=== PATIENT | male | born 1975 ===

== ENCOUNTER 2020-12-06 19:07 | Observation (INO) | payer BC ==
--- NOTE | 2020-12-06 19:19 | EDM.PDOC ---
ED HPI GENERAL MEDICAL PROBLEM - General Chief Complaint: ENT Problem Stated Complaint: SWOLLEN MOUTH AND HANDS Time Seen by Provider: 12/06/20 19:11 Source of Information: Reports: Patient History Limitations: Reports: No Limitations - History of Present Illness INITIAL COMMENTS - FREE TEXT/NARRATIVE: 45-year-old male presents for swelling to lips and itchy hands. Patient notes that he does take lisinopril which he has been on for several years. He also notes that he just recently finished a course of antibiotics for a skin infection. He was feeling fine last night, woke up this morning and noted swelling primarily in his upper lip and itchiness, blotchiness to his bilateral hands. Throughout the day the swelling in the upper lip has dissipated but he now notes swelling in bilateral lower lip left greater than right. He denies any drooling, difficulty tolerating secretions, difficulty swallowing, shortness of breath, wheezing, stridor, shortness of breath. - Related Data Allergies Allergy/AdvReac Type Severity Reaction Status Date / Time No Known Allergies Allergy Verified 12/06/20 19:19 Home Meds: Home Meds Aspirin [Halfprin] 81 mg PO BRK 06/04/16 [History] Furosemide [Lasix] 40 mg PO DAILY #5 tablet 06/04/16 [Rx] Levothyroxine 25 mcg PO ACBREAKFAST 06/04/16 [History] Levothyroxine [Synthroid] 50 mcg PO ACBREAKFAST #30 tablet 06/04/16 [Rx] Lisinopril 20 mg PO DAILY #30 tablet 06/04/16 [Rx] Lisinopril [Prinivil] 20 mg PO DAILY 06/04/16 [History] amLODIPine [Norvasc] 5 mg PO DAILY 06/04/16 [History] amLODIPine [Norvasc] 5 mg PO DAILY #30 tablet 06/04/16 [Rx] Past Medical History Cardiovascular History: Reports: Hypertension Endocrine/Metabolic History: Reports: Hypothyroidism ED ROS GENERAL - Review of Systems Review Of Systems: Comprehensive ROS is negative, except as noted in HPI. ED EXAM, GENERAL - Physical Exam Exam: See Below Exam Limited By: No Limitations General Appearance: Alert, WD/WN, No Apparent Distress Throat/Mouth: Normal Oropharynx, Normal Voice, No Airway Compromise, Other (no uveular edema, no oropharyneal swelling, patent airway, swelling to b/l lower lips L>R) Head: Atraumatic, Normocephalic Neck: Normal Inspection, Supple, Other (no stridor) Respiratory/Chest: No Respiratory Distress, Lungs Clear, Normal Breath Sounds, No Accessory Muscle Use Cardiovascular: Normal Peripheral Pulses, Regular Rate, Rhythm Extremities: Normal Inspection Neurological: Alert Psychiatric: Normal Affect, Normal Mood Skin Exam: Warm, Dry, Intact, Normal Color Course - Vital Signs Last Recorded V/S: Last Vital Signs Temp 98.5 F 12/06/20 19:19 Pulse 86 12/06/20 19:19 Resp 17 12/06/20 19:19 BP 137/80 12/06/20 19:19 Pulse Ox 99 12/06/20 19:19 - Orders/Labs/Meds Orders: Active Orders 24 hr Category Date Time Status CORONAVIRUS COVID-19 SHANI [MOLEC] Stat Lab 12/06/20 20:59 Ordered Sodium Chloride 0.9% [Saline Flush] Med 12/06/20 19:32 Active 10 ml FLUSH ASDIRECTED PRN Sodium Chloride 0.9% [Saline Flush] Med 12/06/20 19:32 Active 2.5 ml FLUSH ASDIRECTED PRN Saline Lock Insert [OM.PC] Stat Oth 12/06/20 19:32 Ordered Medication Orders Sodium Chloride (Sodium Chloride 0.9% 10 Ml Syringe) 10 ml FLUSH ASDIRECTED PRN PRN Reason: Keep Vein Open Last Admin: 12/06/20 19:56 Dose: 10 ml Documented by: ESA Sodium Chloride (Sodium Chloride 0.9% 2.5 Ml Syringe) 2.5 ml FLUSH ASDIRECTED PRN PRN Reason: Keep Vein Open Last Admin: 12/06/20 19:56 Dose: 2.5 ml Documented by: ESA Labs: Laboratory Tests 12/06/20 12/06/20 Range/Units 19:45 19:45 WBC 7.61 (4.0-11.0) K/uL RBC 5.26 (4.50-5.90) M/uL Hgb 15.0 (13.0-17.0) g/dL Hct 43.4 (38.0-50.0) % MCV 82.5 (80.0-98.0) fL MCH 28.5 (27.0-32.0) pg MCHC 34.6 (31.0-37.0) g/dL RDW Std Deviation 42.2 (28.0-62.0) fl RDW Coeff of Cassandra 14 (11.0-15.0) % Plt Count 266 (150-400) K/uL MPV 9.90 (7.40-12.00) fL Neut % (Auto) 73.5 (48.0-80.0) % Lymph % (Auto) 19.6 (16.0-40.0) % [place] % (Auto) 5.7 (0.0-15.0) % Eos % (Auto) 1.1 (0.0-7.0) % Baso % (Auto) 0.1 (0.0-1.5) % Neut # (Auto) 5.6 (1.4-5.7) K/uL Lymph # (Auto) 1.5 (0.6-2.4) K/uL [place] # (Auto) 0.4 (0.0-0.8) K/uL Eos # (Auto) 0.1 (0.0-0.7) K/uL Baso # (Auto) 0.0 (0.0-0.1) K/uL Nucleated RBC % 0.0 /100WBC Nucleated RBCs # 0 K/uL Sodium 139 (136-148) mmol/L Potassium 3.8 (3.5-5.1) mmol/L Chloride 102 (98-107) mmol/L Carbon Dioxide 27.7 (21.0-32.0) mmol/L BUN 10 (7.0-18.0) mg/dL Creatinine 1.3 (0.8-1.3) mg/dL Est Cr Clr Drug Dosing 72.53 mL/min Estimated GFR (MDRD) 59.2 ml/min Glucose 116 H (74-106) mg/dL Calcium 9.0 (8.5-10.1) mg/dL Total Bilirubin 0.3 (0.2-1.0) mg/dL AST 20 (15-37) IU/L ALT 41 (14-63) IU/L Alkaline Phosphatase 69 (46-116) U/L Total Protein 7.8 (6.4-8.2) g/dL Albumin 3.5 (3.4-5.0) g/dL Globulin 4.3 H (2.6-4.0) g/dL Albumin/Globulin Ratio 0.8 L (0.9-1.6) Meds: Medications Generic Name Dose Route Start Last Admin Trade Name Freq PRN Reason Stop Dose Admin Sodium Chloride 10 ml 12/06/20 19:32 12/06/20 19:56 Sodium Chloride 0.9% 10 Ml Syringe FLUSH 10 ml ASDIRECTED PRN Administration Keep Vein Open Sodium Chloride 2.5 ml 12/06/20 19:32 12/06/20 19:56 Sodium Chloride 0.9% 2.5 Ml Syringe FLUSH 2.5 ml ASDIRECTED PRN Administration Keep Vein Open Discontinued Medications Generic Name Dose Route Start Last Admin Trade Name Freq PRN Reason Stop Dose Admin Diphenhydramine HCl 50 mg 12/06/20 19:33 12/06/20 19:55 Diphenhydramine 50 Mg/Ml Sdv IVPUSH 12/06/20 19:34 Not Given ONETIME ONE Diphenhydramine HCl 25 mg 12/06/20 19:49 12/06/20 19:51 Diphenhydramine 50 Mg/Ml Sdv IVPUSH 12/06/20 19:50 25 mg ONETIME ONE Administration Tranexamic Acid 1,000 mg/ 110 mls @ 10 mls/min 12/06/20 19:33 12/06/20 19:48 Sodium Chloride IV 12/06/20 19:43 10 mls/min ONETIME ONE Administration Methylprednisolone Sodium Succinate 125 mg 12/06/20 19:33 12/06/20 19:45 Methylprednisolone Sodium Succinate 125 Mg/2 Ml Sdv IVPUSH 12/06/20 19:34 125 mg ONETIME ONE Administration Tranexamic Acid Confirm 12/06/20 19:44 12/06/20 19:48 Tranexamic Acid 1,000 Mg/10 Ml Amp Administered 12/06/20 19:45 Not Given Dose 1,000 mg .ROUTE .[facility] ONE - Re-Assessments/Exams Free Text/Narrative Re-Assessment/Exam: 12/06/20 19:36 We will treat for possible JOHN inhibitor induced angioedema. Will give Benadryl, methylprednisolone, TXA. Will get basic labs. Patient symptoms have been going on since this morning and he does not appear to have any airway involvement. 12/06/20 21:04 Patient symptoms not improving. Not getting worse. Discussed disposition decision with patient and through shared decision making we will keep patient for observation considering he lives far from the hospital. I discussed this case with Dr. Steiner the inpatient hospitalist who agrees to admit under his service. Will admit patient to ICU observation. Departure - Departure Time of Disposition: 21:08 Disposition: Admitted As Inpatient 64 Condition: Fair Clinical Impression: Angioedema Qualifiers: Encounter type: initial encounter Qualified Code(s): T78.3XXA - Angioneurotic edema, initial encounter - Discharge Information Referrals: PCP,None [Primary Care Provider] - Forms: ED Department Discharge Critical Care Note - Critical Care Note Total Time (mins): 35 Sepsis Event Note (ED) - Focused Exam Vital Signs: Vital Signs Temp Pulse Resp BP Pulse Ox 12/06/20 19:19 98.5 F 86 17 137/80 99 - My Orders Last 24 Hours: My Active Orders 12/06/20 19:32 Sodium Chloride 0.9% [Saline Flush] 10 ml FLUSH ASDIRECTED PRN Sodium Chloride 0.9% [Saline Flush] 2.5 ml FLUSH ASDIRECTED PRN Saline Lock Insert [OM.PC] Stat 12/06/20 20:59 CORONAVIRUS COVID-19 SHANI [MOLEC] Stat - Assessment/Plan Last 24 Hours: My Active Orders 12/06/20 19:32 Sodium Chloride 0.9% [Saline Flush] 10 ml FLUSH ASDIRECTED PRN Sodium Chloride 0.9% [Saline Flush] 2.5 ml FLUSH ASDIRECTED PRN Saline Lock Insert [OM.PC] Stat 12/06/20 20:59 CORONAVIRUS COVID-19 SHANI [MOLEC] Stat
[2020-12-06] MEDS ORDERED: Sodium Chloride 0.9% 2.5 ML Syringe FLUSH PRN (19:32)
[2020-12-06] MEDS ORDERED: Sodium Chloride 0.9% 10 ML Syringe FLUSH PRN (19:32)
[2020-12-06] MEDS ORDERED: methylPREDNISolone Sodium Succinate 125 MG/2 ML SDV IVPUSH ONE (19:33)
[2020-12-06] MEDS ORDERED: Tranexamic Acid 1,000 MG in Sodium Chloride 0.9% 100 ML IV ONE (19:33)
[2020-12-06] MEDS ORDERED: diphenhydrAMINE 50 MG/ML SDV IVPUSH ONE ×2 (19:33→19:49)
[2020-12-06 20:11] LABS: CARBON DIOXIDE,CO2 27.7 mmol/L (21.0-32.0); POTASSIUM,K 3.8 mmol/L (3.5-5.1)
[2020-12-06 22:52] VITALS: PULSE 63
--- NOTE | 2020-12-06 23:55 | PCM.HP.2 ---
H&P History of Present Illness - General Date of Service: 12/07/20 Admit Problem/Dx: Admission Diagnosis/Problem Admission Diagnosis/Problem Angioedema - History of Present Illness Initial Comments - Free Text/Narative: 45 yo male with pmh of HTN who presented to the ED with one day history of lip and hand swelling, he denies any tongue swelling, rash, shortness of breath, or difficulty swallowing. Patient has been taking lisinopril and just finished an antibiotic course for skin infection over recent skin cancer lesion excesion on the back of his neck. - Related Data Allergies/Adverse Reactions: Allergies Allergy/AdvReac Type Severity Reaction Status Date / Time No Known Allergies Allergy Verified 12/06/20 19:19 Home Medications: Home Meds Aspirin [Halfprin] 81 mg PO BEDTIME 06/04/16 [History] Levothyroxine [Synthroid] 50 mcg PO ACBREAKFAST #30 tablet 06/04/16 [Rx] amLODIPine [Norvasc] 5 mg PO DAILY #30 tablet 06/04/16 [Rx] Chlorthalidone 1 tab PO DAILY 12/06/20 [History] Lisinopril 40 mg PO DAILY 12/06/20 [History] Phentermine HCl 37.5 mg PO DAILY 12/06/20 [History] Past Medical History HEENT History: Reports: None Cardiovascular History: Reports: Hypertension Respiratory History: Reports: Sleep Apnea, Other (See Below) Other Respiratory History: using CPAP at night. COVID last 04/2020 Gastrointestinal History: Reports: None Genitourinary History: Reports: None Musculoskeletal History: Reports: None, Other (See Below) Other Musculoskeletal History: Congenitive disc at L5, S1 Neurological History: Reports: None Psychiatric History: Reports: None Endocrine/Metabolic History: Reports: Hypothyroidism Hematologic History: Reports: None Oncologic (Cancer) History: Reports: Basal Cell Carcinoma Dermatologic History: Reports: None - Infectious Disease History Infectious Disease History: Reports: Chicken Pox - Past Surgical History Head Surgeries/Procedures: Reports: None Social & Family History - Family History Family Medical History: No Pertinent Family History - Tobacco Use Tobacco Use Status *Q: Never Tobacco User Second Hand Smoke Exposure: No - Caffeine Use Caffeine Use: Reports: Coffee, Tea - Recreational Drug Use Recreational Drug Use: No H&P Review of Systems - Review of Systems: Review Of Systems: Comprehensive ROS is negative, except as noted in HPI. Exam - Exam Exam: See Below - Vital Signs Vital Signs: Last Vital Signs Temp 36.2 C 12/06/20 22:50 Pulse 63 12/06/20 22:21 Resp 16 12/06/20 22:50 BP 128/69 12/06/20 22:50 Pulse Ox 93 L 12/06/20 22:50 Weight: 146.102 kg - Exam General: Alert, Oriented HEENT: Mucosa Moist & [place], Other (lower lip appears mccann compaired to upper lip, no edema of tounge or oropharynx) Lungs: Clear to Auscultation, Normal Respiratory Effort Cardiovascular: Regular Rate, Regular Rhythm GI/Abdominal Exam: Normal Bowel Sounds, Soft, Non-Tender Extremities: Non-Tender, No Pedal Edema, Other (mild edema of hands bilaterally) Skin: Warm, Dry, Intact. No: Rash - Patient Data Lab Results Last 24 hrs: Laboratory Results - last 24 hr 12/06/20 12/06/20 12/06/20 Range/Units 19:45 19:45 21:22 WBC 7.61 (4.0-11.0) K/uL RBC 5.26 (4.50-5.90) M/uL Hgb 15.0 (13.0-17.0) g/dL Hct 43.4 (38.0-50.0) % MCV 82.5 (80.0-98.0) fL MCH 28.5 (27.0-32.0) pg MCHC 34.6 (31.0-37.0) g/dL RDW Std Deviation 42.2 (28.0-62.0) fl RDW Coeff of Cassandra 14 (11.0-15.0) % Plt Count 266 (150-400) K/uL MPV 9.90 (7.40-12.00) fL Neut % (Auto) 73.5 (48.0-80.0) % Lymph % (Auto) 19.6 (16.0-40.0) % [place] % (Auto) 5.7 (0.0-15.0) % Eos % (Auto) 1.1 (0.0-7.0) % Baso % (Auto) 0.1 (0.0-1.5) % Neut # (Auto) 5.6 (1.4-5.7) K/uL Lymph # (Auto) 1.5 (0.6-2.4) K/uL [place] # (Auto) 0.4 (0.0-0.8) K/uL Eos # (Auto) 0.1 (0.0-0.7) K/uL Baso # (Auto) 0.0 (0.0-0.1) K/uL Nucleated RBC % 0.0 /100WBC Nucleated RBCs # 0 K/uL Sodium 139 (136-148) mmol/L Potassium 3.8 (3.5-5.1) mmol/L Chloride 102 (98-107) mmol/L Carbon Dioxide 27.7 (21.0-32.0) mmol/L BUN 10 (7.0-18.0) mg/dL Creatinine 1.3 (0.8-1.3) mg/dL Est Cr Clr Drug Dosing 72.53 mL/min Estimated GFR (MDRD) 59.2 ml/min Glucose 116 H (74-106) mg/dL Calcium 9.0 (8.5-10.1) mg/dL Total Bilirubin 0.3 (0.2-1.0) mg/dL AST 20 (15-37) IU/L ALT 41 (14-63) IU/L Alkaline Phosphatase 69 (46-116) U/L Total Protein 7.8 (6.4-8.2) g/dL Albumin 3.5 (3.4-5.0) g/dL Globulin 4.3 H (2.6-4.0) g/dL Albumin/Globulin Ratio 0.8 L (0.9-1.6) SARS-CoV-2 RNA (SHANI) NEGATIVE (NEGATIVE) Result Diagrams: 12/07/20 06:05 12/07/20 06:05 Sepsis Event Note - Evaluation Sepsis Screening Result: No Definite Risk - Focused Exam Vital Signs: Vital Signs Temp Pulse Resp BP Pulse Ox 12/06/20 22:50 36.2 C 16 128/69 93 L 12/06/20 22:21 63 119/69 94 L 12/06/20 21:50 67 107/62 94 L 12/06/20 21:21 73 103/71 96 12/06/20 20:50 117/76 12/06/20 20:21 115/73 12/06/20 19:51 81 125/77 98 12/06/20 19:19 36.9 C 86 17 137/80 99 Problem List Initiated/Reviewed/Updated: Yes Orders Last 24hrs: Active Orders 24 hr Category Date Time Status Patient Status [ADT] Routine ADT 12/06/20 21:08 Active Sodium Chloride 0.9% [Saline Flush] Med 12/06/20 19:32 Active 10 ml FLUSH ASDIRECTED PRN Sodium Chloride 0.9% [Saline Flush] Med 12/06/20 19:32 Active 2.5 ml FLUSH ASDIRECTED PRN Saline Lock Insert [OM.PC] Stat Oth 12/06/20 19:32 Ordered Medication Orders Sodium Chloride (Sodium Chloride 0.9% 10 Ml Syringe) 10 ml FLUSH ASDIRECTED PRN PRN Reason: Keep Vein Open Last Admin: 12/06/20 19:56 Dose: 10 ml Documented by: ESA Sodium Chloride (Sodium Chloride 0.9% 2.5 Ml Syringe) 2.5 ml FLUSH ASDIRECTED PRN PRN Reason: Keep Vein Open Last Admin: 12/06/20 19:56 Dose: 2.5 ml Documented by: ESA Assessment/Plan Comment:: 45 yo male admitted for angioedema likely related to scarlet inhibitor. Patient has received Benadryl, solumedrol and tranexamic acid. We will monitor overnight
[2020-12-07 06:57] LABS: BLOOD UREA NITROGEN,BUN 15 mg/dL (7.0-18.0); CARBON DIOXIDE,CO2 25.6 mmol/L (21.0-32.0); CHLORIDE,CL 103 mmol/L (98-107); GLUCOSE RANDOM 162 mg/dL (74-106); POTASSIUM,K 4.3 mmol/L (3.5-5.1); SODIUM,NA 138 mmol/L (136-148)
[2020-12-07] MEDS ORDERED: Levothyroxine 50 MCG Tab PO SCH (07:30)
[2020-12-07] MEDS ORDERED: Chlorthalidone 25 MG Tab PO SCH (09:00)
[2020-12-07] MEDS ORDERED: amLODIPine 5 MG Tab PO SCH (09:00)
[2020-12-07 12:41] VITALS: BP 121/70
--- NOTE | 2020-12-07 12:53 | PCM.PN ---
- General Info Date of Service: 12/07/20 - Review of Systems Systems Review Comment:: 45 yo male with pmh of HTN who was admitted for angioedema due to Lisinopril. He presented to the ED with one day history of lip and hand swelling, he denied any tongue swelling, rash, shortness of breath, or difficulty swallowing. He had no other symptoms to suggest anaphylaxis or allergic reaction. He was monitored overnight after receiving solumedrol, Benadryl and tranexamic acid. He reports the edema has improved this morning. He was offered continued monitoring but patient prefers discharge home with close follow up. He was instructed to avoid all JOHN inhibitors and ARBs. He was told that even after discontinuation of lisinopril symptoms may return for a period of time. Patient was discharge home and is to follow up with his PCP. - Patient Data Vitals - Most Recent: Last Vital Signs Temp 36.1 C 12/07/20 08:00 Pulse 63 12/06/20 22:21 Resp 14 12/07/20 08:00 BP 121/70 12/07/20 08:00 Pulse Ox 92 L 12/07/20 08:00 Weight - Most Recent: 146.102 kg I&O - Last 24 Hours: Intake & Output 12/06/20 12/07/20 12/07/20 22:59 06:59 14:59 Intake Total 0 Output Total 500 Balance -500 Lab Results Last 24 Hours: Laboratory Results - last 24 hr 12/06/20 12/06/20 12/06/20 Range/Units 19:45 19:45 21:22 WBC 7.61 (4.0-11.0) K/uL RBC 5.26 (4.50-5.90) M/uL Hgb 15.0 (13.0-17.0) g/dL Hct 43.4 (38.0-50.0) % MCV 82.5 (80.0-98.0) fL MCH 28.5 (27.0-32.0) pg MCHC 34.6 (31.0-37.0) g/dL RDW Std Deviation 42.2 (28.0-62.0) fl RDW Coeff of Cassandra 14 (11.0-15.0) % Plt Count 266 (150-400) K/uL MPV 9.90 (7.40-12.00) fL Neut % (Auto) 73.5 (48.0-80.0) % Lymph % (Auto) 19.6 (16.0-40.0) % [place] % (Auto) 5.7 (0.0-15.0) % Eos % (Auto) 1.1 (0.0-7.0) % Baso % (Auto) 0.1 (0.0-1.5) % Neut # (Auto) 5.6 (1.4-5.7) K/uL Lymph # (Auto) 1.5 (0.6-2.4) K/uL [place] # (Auto) 0.4 (0.0-0.8) K/uL Eos # (Auto) 0.1 (0.0-0.7) K/uL Baso # (Auto) 0.0 (0.0-0.1) K/uL Nucleated RBC % 0.0 /100WBC Nucleated RBCs # 0 K/uL Sodium 139 (136-148) mmol/L Potassium 3.8 (3.5-5.1) mmol/L Chloride 102 (98-107) mmol/L Carbon Dioxide 27.7 (21.0-32.0) mmol/L BUN 10 (7.0-18.0) mg/dL Creatinine 1.3 (0.8-1.3) mg/dL Est Cr Clr Drug Dosing 72.53 mL/min Estimated GFR (MDRD) 59.2 ml/min Glucose 116 H (74-106) mg/dL Calcium 9.0 (8.5-10.1) mg/dL Total Bilirubin 0.3 (0.2-1.0) mg/dL AST 20 (15-37) IU/L ALT 41 (14-63) IU/L Alkaline Phosphatase 69 (46-116) U/L Total Protein 7.8 (6.4-8.2) g/dL Albumin 3.5 (3.4-5.0) g/dL Globulin 4.3 H (2.6-4.0) g/dL Albumin/Globulin Ratio 0.8 L (0.9-1.6) SARS-CoV-2 RNA (SHANI) NEGATIVE (NEGATIVE) 12/07/20 12/07/20 Range/Units 06:05 06:05 WBC 7.79 (4.0-11.0) K/uL RBC 5.21 (4.50-5.90) M/uL Hgb 14.6 (13.0-17.0) g/dL Hct 43.4 (38.0-50.0) % MCV 83.3 (80.0-98.0) fL MCH 28.0 (27.0-32.0) pg MCHC 33.6 (31.0-37.0) g/dL RDW Std Deviation 42.8 (28.0-62.0) fl RDW Coeff of Cassandra 14 (11.0-15.0) % Plt Count 272 (150-400) K/uL MPV 10.90 (7.40-12.00) fL Neut % (Auto) 89.2 H (48.0-80.0) % Lymph % (Auto) 9.8 L (16.0-40.0) % [place] % (Auto) 1.0 (0.0-15.0) % Eos % (Auto) 0.0 (0.0-7.0) % Baso % (Auto) 0.0 (0.0-1.5) % Neut # (Auto) 7.0 H (1.4-5.7) K/uL Lymph # (Auto) 0.8 (0.6-2.4) K/uL [place] # (Auto) 0.1 (0.0-0.8) K/uL Eos # (Auto) 0.0 (0.0-0.7) K/uL Baso # (Auto) 0.0 (0.0-0.1) K/uL Nucleated RBC % 0.0 /100WBC Nucleated RBCs # 0 K/uL Sodium 138 (136-148) mmol/L Potassium 4.3 (3.5-5.1) mmol/L Chloride 103 (98-107) mmol/L Carbon Dioxide 25.6 (21.0-32.0) mmol/L BUN 15 (7.0-18.0) mg/dL Creatinine 1.2 (0.8-1.3) mg/dL Est Cr Clr Drug Dosing 78.58 mL/min Estimated GFR (MDRD) > 60.0 ml/min Glucose 162 H (74-106) mg/dL Calcium 9.4 (8.5-10.1) mg/dL Total Bilirubin (0.2-1.0) mg/dL AST (15-37) IU/L ALT (14-63) IU/L Alkaline Phosphatase (46-116) U/L Total Protein (6.4-8.2) g/dL Albumin (3.4-5.0) g/dL Globulin (2.6-4.0) g/dL Albumin/Globulin Ratio (0.9-1.6) SARS-CoV-2 RNA (SHANI) (NEGATIVE) Med Orders - Current: Current Medications Levothyroxine Sodium (Levothyroxine 50 Mcg Tab) 50 mcg PO ACBREAKFAST NEETA Last Admin: 12/07/20 06:55 Dose: 50 mcg Documented by: Sodium Chloride (Sodium Chloride 0.9% 10 Ml Syringe) 10 ml FLUSH ASDIRECTED PRN PRN Reason: Keep Vein Open Last Admin: 12/06/20 19:56 Dose: 10 ml Documented by: Sodium Chloride (Sodium Chloride 0.9% 2.5 Ml Syringe) 2.5 ml FLUSH ASDIRECTED PRN PRN Reason: Keep Vein Open Last Admin: 12/06/20 19:56 Dose: 2.5 ml Documented by: Discontinued Medications Amlodipine Besylate (Amlodipine 5 Mg Tab) 5 mg PO DAILY [facility] Chlorthalidone (Chlorthalidone 25 Mg Tab) 25 mg PO DAILY [facility] Diphenhydramine HCl (Diphenhydramine 50 Mg/Ml Sdv) 50 mg IVPUSH ONETIME ONE Stop: 12/06/20 19:34 Last Admin: 12/06/20 19:55 Dose: Not Given Documented by: Diphenhydramine HCl (Diphenhydramine 50 Mg/Ml Sdv) 25 mg IVPUSH ONETIME ONE Stop: 12/06/20 19:50 Last Admin: 12/06/20 19:51 Dose: 25 mg Documented by: Tranexamic Acid 1,000 mg/ (Sodium Chloride) 110 mls @ 10 mls/min IV ONETIME ONE Stop: 12/06/20 19:43 Last Admin: 12/06/20 19:48 Dose: 10 mls/min Documented by: Methylprednisolone Sodium Succinate (Methylprednisolone Sodium Succinate 125 Mg/2 Ml Sdv) 125 mg IVPUSH ONETIME ONE Stop: 12/06/20 19:34 Last Admin: 12/06/20 19:45 Dose: 125 mg Documented by: Tranexamic Acid (Tranexamic Acid 1,000 Mg/10 Ml Amp) Confirm Administered Dose 1,000 mg .ROUTE .STK-MED ONE Stop: 12/06/20 19:45 Last Admin: 12/06/20 19:48 Dose: Not Given Documented by: - Patient Data Lab Results Last 24 hrs: Laboratory Results - last 24 hr 12/06/20 12/06/20 12/06/20 Range/Units 19:45 19:45 21:22 WBC 7.61 (4.0-11.0) K/uL RBC 5.26 (4.50-5.90) M/uL Hgb 15.0 (13.0-17.0) g/dL Hct 43.4 (38.0-50.0) % MCV 82.5 (80.0-98.0) fL MCH 28.5 (27.0-32.0) pg MCHC 34.6 (31.0-37.0) g/dL RDW Std Deviation 42.2 (28.0-62.0) fl RDW Coeff of Cassandra 14 (11.0-15.0) % Plt Count 266 (150-400) K/uL MPV 9.90 (7.40-12.00) fL Neut % (Auto) 73.5 (48.0-80.0) % Lymph % (Auto) 19.6 (16.0-40.0) % [place] % (Auto) 5.7 (0.0-15.0) % Eos % (Auto) 1.1 (0.0-7.0) % Baso % (Auto) 0.1 (0.0-1.5) % Neut # (Auto) 5.6 (1.4-5.7) K/uL Lymph # (Auto) 1.5 (0.6-2.4) K/uL [place] # (Auto) 0.4 (0.0-0.8) K/uL Eos # (Auto) 0.1 (0.0-0.7) K/uL Baso # (Auto) 0.0 (0.0-0.1) K/uL Nucleated RBC % 0.0 /100WBC Nucleated RBCs # 0 K/uL Sodium 139 (136-148) mmol/L Potassium 3.8 (3.5-5.1) mmol/L Chloride 102 (98-107) mmol/L Carbon Dioxide 27.7 (21.0-32.0) mmol/L BUN 10 (7.0-18.0) mg/dL Creatinine 1.3 (0.8-1.3) mg/dL Est Cr Clr Drug Dosing 72.53 mL/min Estimated GFR (MDRD) 59.2 ml/min Glucose 116 H (74-106) mg/dL Calcium 9.0 (8.5-10.1) mg/dL Total Bilirubin 0.3 (0.2-1.0) mg/dL AST 20 (15-37) IU/L ALT 41 (14-63) IU/L Alkaline Phosphatase 69 (46-116) U/L Total Protein 7.8 (6.4-8.2) g/dL Albumin 3.5 (3.4-5.0) g/dL Globulin 4.3 H (2.6-4.0) g/dL Albumin/Globulin Ratio 0.8 L (0.9-1.6) SARS-CoV-2 RNA (SHANI) NEGATIVE (NEGATIVE) 12/07/20 12/07/20 Range/Units 06:05 06:05 WBC 7.79 (4.0-11.0) K/uL RBC 5.21 (4.50-5.90) M/uL Hgb 14.6 (13.0-17.0) g/dL Hct 43.4 (38.0-50.0) % MCV 83.3 (80.0-98.0) fL MCH 28.0 (27.0-32.0) pg MCHC 33.6 (31.0-37.0) g/dL RDW Std Deviation 42.8 (28.0-62.0) fl RDW Coeff of Cassandra 14 (11.0-15.0) % Plt Count 272 (150-400) K/uL MPV 10.90 (7.40-12.00) fL Neut % (Auto) 89.2 H (48.0-80.0) % Lymph % (Auto) 9.8 L (16.0-40.0) % [place] % (Auto) 1.0 (0.0-15.0) % Eos % (Auto) 0.0 (0.0-7.0) % Baso % (Auto) 0.0 (0.0-1.5) % Neut # (Auto) 7.0 H (1.4-5.7) K/uL Lymph # (Auto) 0.8 (0.6-2.4) K/uL [place] # (Auto) 0.1 (0.0-0.8) K/uL Eos # (Auto) 0.0 (0.0-0.7) K/uL Baso # (Auto) 0.0 (0.0-0.1) K/uL Nucleated RBC % 0.0 /100WBC Nucleated RBCs # 0 K/uL Sodium 138 (136-148) mmol/L Potassium 4.3 (3.5-5.1) mmol/L Chloride 103 (98-107) mmol/L Carbon Dioxide 25.6 (21.0-32.0) mmol/L BUN 15 (7.0-18.0) mg/dL Creatinine 1.2 (0.8-1.3) mg/dL Est Cr Clr Drug Dosing 78.58 mL/min Estimated GFR (MDRD) > 60.0 ml/min Glucose 162 H (74-106) mg/dL Calcium 9.4 (8.5-10.1) mg/dL Total Bilirubin (0.2-1.0) mg/dL AST (15-37) IU/L ALT (14-63) IU/L Alkaline Phosphatase (46-116) U/L Total Protein (6.4-8.2) g/dL Albumin (3.4-5.0) g/dL Globulin (2.6-4.0) g/dL Albumin/Globulin Ratio (0.9-1.6) SARS-CoV-2 RNA (SHANI) (NEGATIVE) Result Diagrams: 12/07/20 06:05 12/07/20 06:05 Sepsis Event Note - Evaluation Sepsis Screening Result: No Definite Risk - Focused Exam Vital Signs: Vital Signs Temp Resp BP Pulse Ox Pulse Ox 12/07/20 08:00 36.1 C 14 121/70 92 L 12/07/20 04:38 113/52 L 12/07/20 03:55 36.1 C 14 103/51 L 93 L 12/07/20 02:00 13 114/57 L 91 L 12/07/20 01:26 91 L 12/07/20 01:00 12 103/51 L 96 - Problem List Review Problem List Initiated/Reviewed/Updated: Yes - My Orders Last 24 Hours: My Active Orders 12/07/20 01:26 Oxygen Therapy [RC] PRN VTE/DVT Education [RC] PER UNIT ROUTINE Vital Signs [RC] Q4H Sequential Compression Device [OM.PC] Per Unit Routine Resuscitation Status Routine 12/07/20 01:27 Antiembolic Devices [RC] DAILY 12/07/20 Breakfast Regular Diet [DIET] 12/07/20 07:30 Levothyroxine [Synthroid] 50 mcg PO ACBREAKFAST 12/07/20 12:47 Ready for Discharge [RC] PER UNIT ROUTINE - Plan Plan:: 45 yo male admitted for angioedema likely related to john inhibitor. Patient has received Benadryl, solumedrol and tranexamic acid. We will monitor overnight
== END 2020-12-07 13:30 | disposition home or self-care (01) ==
LOC: MW.ED 19:07 → MW.MS 21:13 → MW.ICU 21:26
PROVIDERS: ADMIT Internal Medicine; ATTEND Internal Medicine
DX: T78.3XXA Angioneurotic edema, initial encounter (principal); I10 Essential (primary) hypertension; E03.9 Hypothyroidism, unspecified; G47.30 Sleep apnea, unspecified; Z79.890 Hormone replacement therapy; Z79.82 Long term (current) use of aspirin; Z79.899 Other long term (current) drug therapy; Z86.16 Personal history of COVID-19; Z20.822 Contact with and (suspected) exposure to COVID-19
CPT/HCPCS: 36415; 80048; 80053; 85025; 87635; A9270; J1200; J2930; 96374; 96375; 99285-25; 99291; G0378; U0002